=== PATIENT | male | born 1985 | race Asian ===

== ENCOUNTER 2018-05-07 09:49 | Emergency (ER) | payer BC ==
--- NOTE | 2018-05-07 10:07 | ED ---
Abdominal Pain/Male - HPI Summary HPI Summary: This patient is a 32 year old M presenting to [facility] with a chief complaint of constant left flank pain radiating to the front since yesterday morning. The patient rates the pain 8/10 in severity. Symptoms aggravated by taking a deep breath. Patient denies dysuria, penile discharge, cough, and difficulty breathing. Patient could not sleep last night due to the pain. He has no PMHx of STDs, blood clots, or allergies. He reports working out 3 days before the pain started. - History of Current Complaint Chief Complaint: EDFlankPain Stated Complaint: LT FLANK PAIN Time Seen by Provider: 05/07/18 09:59 Hx Obtained From: Patient Onset/Duration: Sudden Onset, Lasting Days - Yesterday, Still Present Severity Initially: Severe Severity Currently: Severe Pain Intensity: 8 Pain Scale Used: 0-10 Numeric Location: Flank Radiates to: Chest Aggravating Factor(s): Deep Breaths Associated Signs And Symptoms: Negative: Cough, Penile Discharge, Other - Denies dysuria and difficulty breathing - Allergies/Home Medications Allergies/Adverse Reactions: Allergies Allergy/AdvReac Type Severity Reaction Status Date / Time No Known Allergies Allergy Verified 05/07/18 09:56 PMH/Surg Hx/FS Hx/Imm Hx Endocrine/Hematology History: Denies: Hx Diabetes Cardiovascular History: Denies: Hx Coronary Artery Disease Infectious Disease History: No Infectious Disease History: Denies: Traveled Outside the [place] in Last 30 Days - Family History Known Family History: Negative: Diabetes - Social History Alcohol Use: Occasionally Hx Tobacco Use: No Smoking Status (MU): Never Smoked Tobacco Review of Systems Negative: Cough, Other - Denies difficulty breathing Negative: dysuria, discharge Positive: Other - left flank pain that worsens with a deep breath All Other Systems Reviewed And Are Negative: Yes Physical Exam - Summary Physical Exam Summary: GENERAL: Patient is a well-developed and nourished M who is lying comfortable in the stretcher. Patient is not in any acute respiratory distress. HEAD AND FACE: Normocephalic EYES: PERRLA, EOMI x 2. EARS: Hearing grossly intact. MOUTH: Oropharynx within normal limits. NECK: Supple, trachea is midline, no adenopathy, no JVD, no carotid bruit. CHEST: Symmetric, no tenderness at palpation. Tenderness to palpation over left lower posterior ribs. LUNGS: Clear to auscultation bilaterally. No wheezing or crackles. CVS: Regular rate and rhythm, S1 and S2 present, no murmurs or gallops appreciated. ABDOMEN: Soft, non-tender. Bowel sounds are normal. No abdominal abnormal pulsations. EXTREMITIES: Full ROM in all major joints, no edema, no cyanosis or clubbing. NEURO: Alert and oriented x 3. No acute neurological deficits. Speech is normal and follows commands. SKIN: Dry and warm Triage Information Reviewed: Yes Vital Signs On Initial Exam: Initial Vitals Temp Pulse Resp BP Pulse Ox 98.7 F 71 16 146/73 96 05/07/18 09:51 05/07/18 09:51 05/07/18 09:51 05/07/18 09:51 05/07/18 09:51 Vital Signs Reviewed: Yes Diagnostics - Vital Signs Vital Signs Temp Pulse Resp BP Pulse Ox 05/07/18 09:51 98.7 F 71 16 146/73 96 - Laboratory Result Diagrams: 05/07/18 10:50 05/07/18 10:50 Lab Statement: Any lab studies that have been ordered have been reviewed, and results considered in the medical decision making process. - Radiology Chest X-Ray Radiology Interpretation Completed By: Radiologist - 11:42. NO ACTIVE CARDIOPULMONARY DISEASE IS NOTED. ED Physician has reviewed this imaging report. Abdominal Pain Fem Course/Dx - Course Assessment/Plan: This patient is a 32 year old M presenting to [facility] with a chief complaint of constant left flank pain radiating to the front since yesterday morning. The bloodwork including the D-dimer was unremarkable. Urine showed low evidence of a UTI, in particular no evidence of hematuria. Therefore , my suspicion for kidney stones is low. I believe that the pain is musculoskeletal due to him lifting in the gym prior to the pain's onset. Patient given Toradol with a plan to D/C with ibuprofen and cyclobenzaprine. I discussed results with patient and he agrees with this plan. He is hemodynamically stable upon discharge. Strict return precautions given and he will otherwise follow up with his PCP. - Diagnoses Provider Diagnoses: Back pain Discharge - Sign-Out/Discharge Documenting (check all that apply): Patient Departure - D/C - Discharge Plan Condition: Stable Disposition: HOME Prescriptions: Cyclobenzaprine TAB* [Flexeril 10 MG TAB*] 10 mg PO TID PRN #20 tab PRN Reason: Pain Ibuprofen TAB* [Motrin TAB* 800 MG] 800 mg PO Q6H #21 tab Patient Education Materials: Back Pain (ED) Referrals: No Primary Care Phys,NOPCP [Primary Care Provider] - 3 Days (Because you do not have a primary care physician, follow up with the [facility] in 1-3 days. TO FIND US We are located on the 3rd floor of [facility]. Park in the front Visitor Lot and enter at the 1st Floor Entrance. From the [facility] 1st floor visitor lobby or 2nd floor main lobby, follow signs to the [facility]. TO SCHEDULE AN APPOINTMENT ) Additional Instructions: RETURN TO THE EMERGENCY DEPARTMENT FOR CHANGING OR WORSENING SYMPTOMS. - Attestation Statements Document Initiated by Scribe: Yes Documenting Scribe: Farooq Zamorano Provider For Whom Scribe is Documenting (Include Credential): Silvia Guzman MD Scribe Attestation: Farooq Toledo, scribed for Silvia Guzman MD on 05/07/18 at 1238.
[2018-05-07 11:00] LABS: Urine Appearance Clear; Urine Blood Negative (Negative); Urine Color Straw; Urine Ketones Negative (Negative); Urine Protein Negative (Negative); Urine Specific Gravity 1.006 (1.010-1.030); Urine Urobilinogen Negative (Negative)
[2018-05-07 11:01] LABS: ABS Basophils 0 10^3/ul (0-0.2); ABS Eosinophils 0.1 10^3/ul (0-0.6); ABS Lymphocytes 1.3 10^3/ul (1.0-4.8); ABS Monocytes 0.6 10^3/ul (0-0.8); ABS Neutrophils 5.8 10^3/ul (1.5-7.7); ABS Nucleated RBC 0 10^3/ul; Eosinophil % 0.8 % (0-6); Hematocrit 45 % (42-52); Hemoglobin 16.1 g/dl (14.0-18.0); Lymphocyte % 16.9 % (25-47); Mean Corpuscular HGB Conc 36 g/dl (31-36); Mean Corpuscular Hemoglobin 33 pg (27-31); Mean Corpuscular Volume 92 fL (80-94); Mean Platelet Volume 8.5 um3 (7.4-10.4); Nucleated Red Blood Cells % 0.2; Platelet Count 244 10^3/ul (150-450); Red Blood Count 4.83 10^6/ul (4.00-5.40); Red Cell Distribution Width 13 % (10.5-15); White Blood Count 7.9 10^3/ul (3.5-10.8)
[2018-05-07] MEDS ORDERED: Ketorolac INJ* 60 MG/2 ML VIAL IM ONE (11:41)
[2018-05-07] MEDS ORDERED: Cyclobenzaprine TAB* 10 MG PO ONE (11:42)
--- NOTE | 2018-05-07 11:46 | RAD ---
Indication: Cough. Single frontal view of the chest performed at 1120 hours was reviewed. No prior study is available for comparison. No mediastinal shift is noted. Heart is of normal size and configuration. Lung razo appear clear. IMPRESSION: NO ACTIVE CARDIOPULMONARY DISEASE IS NOTED.
[2018-05-07 12:20] VITALS: BP 115/74
== END 2018-05-07 12:19 | disposition home or self-care (01) ==
LOC: ED 09:49
DX: R10.84 Generalized abdominal pain (principal); M54.9 Dorsalgia, unspecified
CPT/HCPCS: 36415; 71045; 80053; 81003; 83690; 85025; 85379; 86141; 96372; 99282; J1885